=== PATIENT | male | born 1965 | race Caucasian/White ===

== ENCOUNTER 2022-01-30 18:22 | Emergency (ER) | payer BC ==
[2022-01-30] MEDS ORDERED: HYDROmorphone 0.5 MG/0.5 ML Syringe IVPUSH ONE (18:28)
[2022-01-30] MEDS ORDERED: Ondansetron 4 MG Tab.DIS PO ONE (18:29)
[2022-01-30] MEDS ORDERED: Lidocaine 1% 5 ML VIAL INJECT ONE (18:37)
[2022-01-30] MEDS ORDERED: Bupivacaine 0.5% 10 ML SDV INJECT ONE (18:37)
[2022-01-30 19:06] LABS: ANION GAP 10.3 meq/L (7-15); CHLORIDE,CL 105 mmol/L (98-107); SODIUM,NA 141 mmol/L (136-145)
[2022-01-30] MEDS ORDERED: ceFAZolin 1 GM Vial IVPUSH ONE (19:46)
[2022-01-30] MEDS ORDERED: ceFAZolin 1 GM Vial ONE (19:48)
== END 2022-01-30 19:55 ==
LOC: LL.ED 18:22
DX: S68.115A Complete traumatic metacarpophalangeal amputation of left ring finger, initial encounter (principal); S61.211A Laceration without foreign body of left index finger without damage to nail, initial encounter; W23.1XXA Caught, crushed, jammed, or pinched between stationary objects, initial encounter
CPT/HCPCS: 36415; 73120-LT; 80053; 85025; 96374; 96375; 99283; 99284-25; A9270-GY; J0690; J1170